=== PATIENT | male | born 1975 | race Two or more races ===

== ENCOUNTER 2016-07-15 21:52 | Emergency (ER) | payer MEDICAID ==
[2016-07-15] MEDS ORDERED: PROPARACAINE HCL 0.5% 300 GTTS/BOT SOLN.DROP ONE (22:26)
[2016-07-15] MEDS ORDERED: ERYTHROMYCIN OPHTH OINT 0.5% 1 APPLIC/TUBE ONE (22:46)
== END 2016-07-15 23:04 | disposition home or self-care (01) ==
LOC: ED 21:52
DX: H10.31 Unspecified acute conjunctivitis, right eye (principal); H16.002 Unspecified corneal ulcer, left eye
CPT/HCPCS: 99283 ×2; A9270 ×2